=== PATIENT | female | born 1950 | race Caucasian/White ===

== ENCOUNTER → 2022-02-14 | Outpatient (CLI) | payer MEDICARE ==
--- NOTE | 2022-02-14 08:18 | P.GSHP ---
History of Present Illness H&P Date: 02/14/22 Chief Complaint: Abnormal mammogram Angela is a 71 year old female seen in consultation for Teresa Joshi regarding the mammographic abnormality in her right breast. She had a bilateral mammogram performed on . This revealed some grouping of microcalcificati ons within the right breast which had increased in number from her 2020 exam. His were in the middle third 3 to 4 o'clock position. On 9621 a right breast diagnostic mammogram was performed which again revealed calcifications demonstrated some pleomorphism and stereotactic core biopsy was recommended. She does not feel any lumps masses or nodules of concern in either breast. Patient has had 2 biopsies of the left breast which were open. These were benign. These were done approximately 30 years ago. She has not had any nipple discharge, trauma, or infection and the breast recently. Caffeine: occasional nicotine: former smoker; stopped about 49 chocolate: several times a week BCP: 3 years when she was in her 20's Family History: father: prostate cancer brother: skin cancer ? type Hormonal History: menarche: 13 , breast fed: no, age at first : 22 menopause: hysterectomy, ? 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 Eyes: denies blurred vision, denies pain Ears: deny: decreased hearing, tinnitus Ears, nose, mouth and throat: Denies headache, Denies sore throat - Breasts Breasts: bilateral: as per HPI - Cardiovascular Comment: atrial fib - Respiratory Respiratory: Denies cough, Denies 7 - Gastrointestinal Comment: hiatal hernia Gastrointestinal: Denies abdominal pain, Denies diarrhea, Denies nausea, Denies vomiting - Genitourinary (Female) Genitourinary: Denies dysuria, Denies hematuria - Menstruation Menstruation: Reports post hysterectomy - Musculoskeletal Comment: Osteoporosis - Integumentary Integumentary: Denies pruritus, Denies rash - Neurological Neurological: Denies numbness, Denies weakness - Psychiatric Psychiatric: Denies anxiety, Denies depression - Endocrine Endocrine: Denies fatigue, Denies weight change - Hematologic/Lymphatic Comment: eloquis Hematologic/Lymphatic: Reports as per HPI - Allergic/Immunologic Allergic/Immunologic: Reports as per HPI, Reports seasonal allergies Past Medical History Past Medical History: Atrial Fibrillation, Osteoarthritis (OA) History of Any Multi-Drug Resistant Organisms: None Reported Past Surgical History: No Surgical Hx Reported, Hysterectomy Additional Past Surgical History / Comment(s): left breast biopsy x 2 benign Past Anesthesia/Blood Transfusion Reactions: No Reported Reaction Past Psychological History: No Psychological Hx Reported Smoking Status: Former smoker Past Alcohol Use History: Occasional Additional Past Alcohol Use History / Comment(s): quit smoking 2009 ?? Past Drug Use History: None Reported Medications and Allergies Home Medications Medication Instructions Recorded Confirmed Type Apixaban [Eliquis] 5 mg PO BID 01/29/22 02/14/22 History Biotin 5 mg PO DAILY 01/29/22 02/14/22 History Cholecalciferol (Vitamin D3) 125 mcg PO DAILY 01/29/22 02/14/22 History [Vitamin D3 (125 MCG = 5,000 IU)] Allergies Allergy/AdvReac Type Severity Reaction Status Date / Time prednisone AdvReac Rash/Hives Verified 02/14/22 07:54 Surgical - Exam BMI: 25.5 - General no distress - Eyes normal ocular movement - Neck trachea midline - Respiratory normal respiratory effort, clear to auscultation - Cardiovascular Heart Sounds: normal: S1, S2 - Abdomen Abdomen: soft, non tender, no guarding, no rigid, no rebound - Integumentary normal turgor - Neurologic no disoriented, no combative - Musculoskeletal normal gait, normal posture - Psychiatric oriented to time, oriented to person, oriented to place, speech is normal, memory intact Breast Exam: BRA: 36C inspection: bilateral grade 2 ptosis Palpation: Right breast: Multi-positional exam fibrocystic changes no dominant masses or nodules of concern Right axilla: No adenopathy of concern Left breast: Well-healed scars from prior biopsy, no dominant masses or nodules of concern a multi-positional exam Left axilla: No adenopathy of concern Results Mammogram reviewed with Dr. Caban from radiology, right breast pleomorphic calcifications at approximately the 3 to 4 o'clock position in the midportion of the breast Assessment and Plan Assessment: Impression: 1. Atrial fibrillation 2. Hiatal hernia 3. Osteoporosis 4. Amorphic microcalcifications right breast 3 to 4 o'clock position Plan: Stereotactic core biopsy microcalcifications right breast, patient has stopped L it was approximately 48 hours ago Risks and benefits of the procedure discussed with the patient. Risks include but are not limited to bleeding, infection, reaction to the anesthetic. If the tissue obtained was felt to be discordant and further tissue may be necessary to be obtained. The patient understands and wishes to proceed Cc: Dr. Ahmadi, Teresa Joshi N.P.
== END | disposition home or self-care (01) ==
LOC: WWCWWP 06:45
PROVIDERS: ATTEND Surgery
DX: Z53.9 Procedure and treatment not carried out, unspecified reason (principal)

== ENCOUNTER → 2022-02-14 | Day surgery (SDC) | payer MEDICARE ==
[2022-02-14 07:25] VITALS: RESP 16
--- NOTE | 2022-02-14 08:54 | P.PCN ---
Date of Procedure: 02/14/22 Preoperative Diagnosis: Microcalcifications of concern right breast 3 to 4 o'clock position middle portion Postoperative Diagnosis: Same Procedure(s) Performed: Stereotactic core biopsy right breast Anesthesia: local Surgeon: Halle Adams Pathology: other (Breast tissue, radiograph reveals microcalcifications of concern) Condition: stable Disposition: same day Indications for Procedure: Microcalcifications of concern right breast 3 to 4 o'clock position Operative Findings: Radiograph of specimen reveals microcalcifications of concern Description of Procedure: The patient is a 71-year-old white female noted to have microcalcifications of concern in her right breast at the 3 to 4 o'clock position. She was seen and examined preprocedure. The area of concern was noted to be in the 3 to 4 o'clock position of the right breast in the mid breast. A stereotactic core biopsy was recommended. Risks including bleeding, infection, reaction to the anesthetic were discussed with the patient. The possibility of a discordant biopsy which would necessitate further tissue acquisition was also discussed. The patient understood and wished to proceed. Alternatives such as watchful waiting resection the operating room are considered but not recommended. The patient was taken to the stereotactic core biopsy room. She was positioned prone on the lo-rad table. A test engineering technician film was obtained. The area of concern was identified. A medial to lateral approach was utilized. The lesion was targeted. The breast was prepped using Betadine. 20 mL of 1% lidocaine was used to anesthetize the area of concern. A 9-gauge vacuum-assisted core rota ting biopsy needle was driven to the correct coordinates. A prefire film was obtained. The needle was noted to be in the correct location. The needle was fired. A post fire film was obtained. The needle was noted to be in the correct location. 12 core biopsy specimens were obtained. Radiograph of the specimen revealed the microcalcifications of concern to be present. A secure ambika top hat clip was placed. Radiograph revealed this to be in the correct location. The patient tolerated the procedure in stable condition. The specimen was sent to pathology. The patient will follow-up with Dr. Mccrary.
[2022-02-14 08:57] VITALS: BP 154/84; PULSE 79; TEMP 98.2
--- NOTE | 2022-02-15 10:45 | MM ---
Date of Procedure: 02/14/22 Preoperative Diagnosis: Microcalcifications of concern right breast 3 to 4 o'clock position middle portion Postoperative Diagnosis: Same Procedure(s) Performed: Stereotactic core biopsy right breast Anesthesia: local Surgeon: Halle Adams Pathology: other (Breast tissue, radiograph reveals microcalcifications of concern) Condition: stable Disposition: same day Indications for Procedure: Microcalcifications of concern right breast 3 to 4 o'clock position Operative Findings: Radiograph of specimen reveals microcalcifications of concern Description of Procedure: The patient is a 71-year-old white female noted to have microcalcifications of concern in her right breast at the 3 to 4 o'clock position. She was seen and examined preprocedure. The area of concern was noted to be in the 3 to 4 o'clock position of the right breast in the mid breast. A stereotactic core biopsy was recommended. Risks including bleeding, infection, reaction to the anesthetic were discussed with the patient. The possibility of a discordant biopsy which would necessitate further tissue acquisition was also discussed. The patient understood and wished to proceed. Alternatives such as watchful waiting resection the operating room are considered but not recommended. The patient was taken to the stereotactic core biopsy room. She was positioned prone on the lo-rad table. A supervisor cellars film was obtained. The area of concern was identified. A medial to lateral approach was utilized. The lesion was targeted. The breast was prepped using Betadine. 20 mL of 1% lidocaine was used to anesthetize the area of concern. A 9-gauge vacuum-assisted core rotating biopsy needle was driven to the correct coordinates. A prefire film was obtained. The needle was noted to be in the correct location. The needle was fired. A post fire film was obtained. The needle was noted to be in the correct location. 12 core biopsy specimens were obtained. Radiograph of the specimen revealed the microcalcifications of concern to be present. A secure ambika top hat clip was placed. Radiograph revealed this to be in the correct location. The patient tolerated the procedure in stable condition. The specimen was sent to pathology. The patient will follow-up with Dr. Mccrary. LAKHWINDER
== END ==
LOC: RADMAMWWP 06:47
PROVIDERS: ATTEND Surgery
DX: R92.8 Other abnormal and inconclusive findings on diagnostic imaging of breast (principal); C50.911 Malignant neoplasm of unspecified site of right female breast
CPT/HCPCS: 88305; 88342; 88341; 19081; A4648; J2001

== ENCOUNTER → 2022-02-28 | Outpatient (CLI) | payer MEDICARE ==
[2022-02-28 11:28] VITALS: BP 127/77; PULSE 73; RESP 16; TEMP 98.4
--- NOTE | 2022-02-28 11:54 | P.PN ---
Subjective Progress Note Date: 02/28/22 Principal diagnosis: DCIS right breast Angela is a 71 year old white female status post a sterotactic core biopsy on [id number]. 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 This was ER/WI positive. The patient tolerated the procedure without difficulty. Her mammogram was reviewed with Dr. Kan from radiology. The area of microcalcifications extend approximately 2 cm in size. Objective - Vital Signs Vital signs: Vital Signs Temp 98.4 F 02/28/22 11:25 Pulse 73 02/28/22 11:25 Resp 16 02/28/22 11:25 BP 127/77 02/28/22 11:25 Pulse Ox 95 02/28/22 11:25 FiO2 Intake & Output 02/27/22 02/28/22 02/28/22 18:59 06:59 18:59 Weight 72.575 kg - Constitutional General appearance: Present: cooperative - EENT Eyes: Present: EOMI ENT: Present: hearing grossly normal - Neck Neck: Present: normal ROM - Respiratory Respiratory: bilateral: CTA - Cardiovascular Heart sounds: normal: S1, S2 - Integumentary Integumentary Comment(s): Biopsy site right breast clean and dry Evidence of infection or hematoma Integumentary: Present: normal turgor - Musculoskeletal Musculoskeletal: Present: gait normal - Psychiatric Psychiatric: Present: A&O x's 3, appropriate affect, intact judgment & insight Assessment and Plan Assessment: Impression: 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 Ahmadi
== END | disposition home or self-care (01) ==
LOC: WWCWWP 10:39
PROVIDERS: ATTEND Surgery
DX: Z53.9 Procedure and treatment not carried out, unspecified reason (principal)

== ENCOUNTER → 2022-04-16 | Day surgery (SDC) | payer MEDICARE ==
--- NOTE | 2022-04-11 11:38 | P.PN ---
Subjective Progress Note Date: 04/11/22 Principal diagnosis: DCIS left breast Angela is a 71 year old female seen in consultation for Teresa Joshi regarding the mammographic abnormality in her right breast. She had a bilateral mammogram performed on . This revealed some grouping of microcalcifications within the right breast which had increased in number from her 2020 exam. His were in the middle third 3 to 4 o'clock position. On 9621 a right breast diagnostic mammogram was performed which again revealed calcifications demonstrated some pleomorphism and stereotactic core biopsy was recommended. She does not feel any lumps masses or nodules of concern in either breast. Patient has had 2 biopsies of the left breast which were open. These were benign. These were done approximately 30 years ago. She has not had any nipple discharge, trauma, or infection and the breast recently. The patient underwent a right breast stereotactic core biopsy on [id number]. Pathology revealed ductal carcinoma in situ. This was felt to extend over a 2 cm area. The lesion was ER/WI positive. There was grade 2. Her case was presented at tumor board on . Secondary to the size of the lesion after discussion with the patient she wishes to have a sentinel node biopsy added to the procedure. This was secondary to the fact that we could not assure her that the wound might not be some microinvasion. We discussed the fact that she is over 69 years of age and there may not be benefit to this and despite this she wished to sentinel node biopsy to be added to the procedure. Caffeine: occasional nicotine: former smoker; stopped about 49 chocolate: several times a week BCP: 3 years when she was in her 20's Family History: father: prostate cancer brother: skin cancer ? type Hormonal History: menarche: 13 , breast fed: no, age at first : 22 menopause: hysterectomy, ? 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 Eyes: denies blurred vision, denies pain Ears: deny: decreased hearing, tinnitus Ears, nose, mouth and throat: Denies headache, Denies sore throat - Breasts Breasts: bilateral: as per HPI - Cardiovascular Comment: atrial fib - Respiratory Respiratory: Denies cough - Gastrointestinal Comment: hiatal hernia Gastrointestinal: Denies abdominal pain, Denies diarrhea, Denies nausea, Denies vomiting - Genitourinary (Female) Genitourinary: Denies dysuria, Denies hematuria - Menstruation Menstruation: Reports post hysterectomy - Musculoskeletal Comment: Osteoporosis - Integumentary Integumentary: Denies pruritus, Denies rash - Neurological Neurological: Denies numbness, Denies weakness - Psychiatric Psychiatric: Denies anxiety, Denies depression - Endocrine Endocrine: Denies fatigue, Denies weight change - Hematologic/Lymphatic Comment: eloquis Hematologic/Lymphatic: Reports as per HPI - Allergic/Immunologic Allergic/Immunologic: Reports as per HPI, Reports seasonal allergies Past Medical History Past Medical History: Atrial Fibrillation, Osteoarthritis (OA) History of Any Multi-Drug Resistant Organisms: None Reported Past Surgical History: No Surgical Hx Reported, Hysterectomy Additional Past Surgical History / Comment(s): left breast biopsy x 2 benign Past Anesthesia/Blood Transfusion Reactions: No Reported Reaction Past Psychological History: No Psychological Hx Reported Smoking Status: Former smoker Past Alcohol Use History: Occasional Additional Past Alcohol Use History / Comment(s): quit smoking 2009 ?? Past Drug Use History: None Reported Medications and Allergies Home Medications Medication Instructions Recorded Confirmed Type Apixaban [Eliquis] 5 mg PO BID 01/29/22 02/14/22 History Biotin 5 mg PO DAILY 01/29/22 02/14/22 History Cholecalciferol (Vitamin D3) 125 mcg PO DAILY 01/29/22 02/14/22 History [Vitamin D3 (125 MCG = 5,000 IU)] Allergies Allergy/AdvReac Type Severity Reaction Status Date / Time prednisone AdvReac Rash/Hives Verified 02/14/22 07:54 Objective - Constitutional General appearance: Present: cooperative - EENT Eyes: Present: EOMI ENT: Present: hearing grossly normal - Neck Neck: Present: normal ROM - Respiratory Respiratory: bilateral: CTA - Cardiovascular Rhythm: regular Heart sounds: normal: S1, S2 - Gastrointestinal General gastrointestinal: Present: soft - Integumentary Integumentary: Present: normal turgor - Musculoskeletal Musculoskeletal: Present: gait normal - Psychiatric Psychiatric: Present: A&O x's 3, appropriate affect, intact judgment & insight - Additional findings Additional findings: Breast Exam: BRA: 36C inspection: bilateral grade 2 ptosis Palpation: Right breast: Multi-positional exam fibrocystic changes no dominant masses or nodules of concern; biopsy site clean and dry no evidence of infection or hematoma Right axilla: No adenopathy of concern Left breast: Well-healed scars from prior biopsy, no dominant masses or nodules of concern a multi-positional exam Left axilla: No adenopathy of concern Assessment and Plan Assessment: Impression: 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 After long discussion with the patient we have discussed surgical options such as lumpectomy plus or minus radiation as well as mastectomy plus or minus reconstruction. We discussed sentinel lobe biopsy and the fact she is over 69 and that this is ductal carcinoma in situ. We discussed the fact that it is greater than 2 cm and I cannot guarantee that there may be some invasive com ponent. Secondary to this and the fact that she has minimal comorbidity she would like to have a sentinel node biopsy performed. Additionally we discussed during the procedure. Mastopexy incision versus an incision over the area of concern. She would like to have the incision over the area of concern and not have a mastopexy incision. Cc: Dr. Rodriges
[~2022-04-16] MED LIST: ALPRAZolam 0.25 MG TAB ONE; ALPRAZolam 0.25 MG TAB PO ONE; ALPRAZolam 0.5 MG TAB PO PRN; DEXAMETHASONE SOD PHOSPHATE 4 MG/ML 1 ML VIAL IVP ONE; HEPARIN SODIUM,PORCINE/PF 5,000 UNIT/0.5 ML SYRINGE SQ PRN; HYDROcodone/APAP 5-325MG 1 EACH TAB ONE; HYDROcodone/APAP 5-325MG 1 EACH TAB PO ONE; HYDROmorphone (PF) 1 MG/ML ONE; HYDROmorphone 0.5 MG/0.5 ML SYRINGE IVP ONE; HYDROmorphone 0.5 MG/0.5 ML SYRINGE IVP PRN; LACTATED RINGERS 1,000 ML IV ONE; LACTATED RINGERS 1,000 ML IV SCH; LIDOCAINE 2% INJ 20 MG/ML (2 ML VIAL) ONE; MIDAZOLAM 2 MG/2 ML VIAL ONE; ONDANSETRON 4 MG/2 ML VIAL IVP ONE; ONDANSETRON 4 MG/2 ML VIAL ONE; PHENYLEPHRINE-0.9% NACL SYG 1,000 MCG/10 ML SYRINGE ONE; PROPOFOL 10 MG/ML 20 ML VIAL IV ONE; Pre Op ABX Message 1 EACH MISC MISCELLANE ONE; diphenhydrAMINE 50 MG/ML 1 ML VIAL IVP ONE; fentaNYL (PF) 50 MCG/ML 2 ML AMP ONE
--- NOTE | 2022-04-16 14:02 | NM ---
EXAMINATION TYPE: NM sentinel node injection DATE OF EXAM: 04/16/2022 COMPARISON: No direct comparisons. HISTORY: Right breast cancer TECHNIQUE AND FINDINGS: The procedure of sentinel lymph node injection was explained to the patient. The benefits, alternatives, and risks were discussed. An informed consent was then obtained. Overlying skin is cleaned with sterile alcohol. Following this, 521 uCi Tc99m Tilmanocept was inject ed in the upper outer aspect of the right nipple intradermally. The patient tolerated the procedure well without any immediate complication. The patient was kept in the radiology department for short stay after the procedure and then taken to surgery for surgical p rocedure what is presumed intraoperative gamma probe will be used for sentinel lymph node detection. IMPRESSION: Right breast radiotracer injection for sentinel node localization as above.
[2022-04-16 14:08] VITALS: RESP 16
--- NOTE | 2022-04-16 15:10 | P.NAPBC ---
NAPBC Queries - NAPBC Queries Was patient's case review presented at [facility] tumor board? If no, comment.: Yes Was patient's pathology reviewed at [facility]? If no, comment.: Yes Was breast conservation surgery offered? If no, comment.: Yes Was sentinel node biopsy offered? If no, comment.: Yes (>2 cm area of DCIS can't gaurentee no invasion age>70 still wanted SNB ) Was diagnosis confirmed by percutaneous core biopsy? If no, comment.: Yes Is patient mastectomy patient?: No Was a preop referral to reconstructive surgeon offered?: No Clinical Stage: stage O
--- NOTE | 2022-04-16 16:38 | P.OP ---
Date of Procedure: 04/16/22 Preoperative Diagnosis: DCIS right breast Postoperative Diagnosis: same Procedure(s) Performed: Right sentinel node biopsy, right needle localization lumpectomy for DCIS, onco plastic tissue transfer 39 cm Anesthesia: SUMMER Surgeon: Halle Adams Estimated Blood Loss (ml): 10 IV fluids (ml): 400 Pathology: other ([place] lymph node, lumpectomy) Condition: stable Disposition: same day Indications for Procedure: Right breast ductal carcinoma in situ Operative Findings: Fibrofatty breast tissue Description of Procedure: The patient is a 71-year-old white female who was seen first by the radiologist in the radiology department where needle localization of the area of concern was performed. Additionally injection of radiotracer was placed in the periareolar region for sentinel node biopsy. The patient was brought up to the operative suite. Following induction of anesthesia the neoprobe was used to interrogate the axilla. Radioactivity was identified. The breast and axilla were prepped and draped in a sterile fashion. An incision was made in the axilla over the area of greatest radioactivity. Dissection was carried down into the axillary tissues. An Allis clamp was used to grasp the tissue of concern. The Harmonic Scalpel was used to resect the tissue. A radioactive lymph node was identified. The 10 second count was 4079. The background 10 second count was 30. Following this the wound was well irrigated. The deep tissues were closed using the Mobile Vicryl suture. The subcutaneous tissue was closed using 3-0 Vicryl suture. The skin was closed using 4-0 Monocryl. Following this the area of the breast was approached. An incision was made and carried down to the shaft of the needle. The tissue was grasped using an Allis clamp. Surrounding tissue was grasped using the Allis clamp and the tissue was resected around the area of the needle. After the tissue was resected it was painted for orientation. An x-ray of the specimen revealed the area of concern had been removed. The wound was examined for hemostasis. It was irrigated. Titanium clips were placed. The cavity itself was 7 x 3 cm for 21 cm. A superior pillar was formed which was 6 x 2 cm for 12 cm. The inferior pillar was 4 x 1.5 cm for 6 cm.. Total tissue transfer was 39 cm. The superior and inferior patellar were brought together to close the defect using 3-0 Vicryl suture. Following this 3-0 Vicryl suture was used in the subcutaneous tissue. A 4-0 Monocryl subcuticular closure was performed. The patient tolerated procedure in stable condition. All instrument and sponge counts were correct at the end of the case.
--- NOTE | 2022-04-16 16:40 | P.DS ---
Providers Attending physician: Halle Adams Primary care physician: Sae Ahmadi Plan - Discharge Summary Discharge Rx Participant: No New Discharge Prescriptions: No Action Cholecalciferol (Vitamin D3) [Vitamin D3 (125 MCG = 5,000 IU)] 125 mcg PO DAILY Multivitamins, Thera [Multivitamin (formulary)] 1 tab PO DAILY Apixaban [Eliquis] 5 mg PO BID Biotin 5 mg PO DAILY Discharge Medication List Apixaban [Eliquis] 5 mg PO BID 01/29/22 [History] Biotin 5 mg PO DAILY 01/29/22 [History] Cholecalciferol (Vitamin D3) [Vitamin D3 (125 MCG = 5,000 IU)] 125 mcg PO DAILY 01/29/22 [History] Multivitamins, Thera [Multivitamin (formulary)] 1 tab PO DAILY 04/11/22 [History] Follow up Appointment(s)/Referral(s): Halle Adams MD [STAFF PHYSICIAN] - 04/18/22 3:20 pm Activity/Diet/Wound Care/Special Instructions: do not drive for 24 hours after discharge or if taking narcotic pain medication may shower after 48 hours wear bra at all times Discharge Disposition: HOME SELF-CARE
[2022-04-16 17:08] VITALS: TEMP 97.1
[2022-04-16 18:25] VITALS: PULSE 76
[2022-04-16 18:56] VITALS: BP 132/63
== END | disposition home or self-care (01) ==
LOC: OR 11:39
PROVIDERS: ATTEND Surgery
DX: D05.11 Intraductal carcinoma in situ of right breast (principal); I48.91 Unspecified atrial fibrillation; I49.9 Cardiac arrhythmia, unspecified; M19.90 Unspecified osteoarthritis, unspecified site; K21.9 Gastro-esophageal reflux disease without esophagitis; Z87.891 Personal history of nicotine dependence; Z79.899 Other long term (current) drug therapy; Z79.01 Long term (current) use of anticoagulants; Z88.8 Allergy status to other drugs, medicaments and biological substances
CPT/HCPCS: 88342; 88307; 88341; 76098; 19281; 38792; 38525; 38900; 14001; C1819; A9520; J2250; J1200; J2405; J3010; J1170 ×2; J2370; J2704; J1644; J2001

== ENCOUNTER → 2022-05-02 | Outpatient (CLI) | payer MEDICARE ==
[2022-05-02 15:25] VITALS: BP 135/78; PULSE 89; RESP 16; TEMP 98.4
--- NOTE | 2022-05-02 15:36 | P.PN ---
Progress Note - Text Progress Note Date: 05/02/22 Angela is a 72 year old white female status post lumpectomy and SNB on 04-16-22 of the right breast. Her margins were (-) but less than 1 mm ant and ant/sup. Two nodes (-). The tumor about 1cm. Physical exam: Lungs: Clear Heart: Regular rate and rhythm Incisions clean and dry and breast and axilla Plan: Patient to follow with radiation oncology and medical oncology The margins anteriorly and anterior superior are closed for the DCIS who will discuss with radiation oncology as to whether they want reexcision. If there is no reexcision follow-up in 4 months CC: Dr. Ahmadi
== END ==
LOC: WWCWWP 14:48
PROVIDERS: ATTEND Surgery
DX: Z90.11 Acquired absence of right breast and nipple (principal); Z88.8 Allergy status to other drugs, medicaments and biological substances

== ENCOUNTER → 2022-10-09 | Outpatient (CLI) | payer MEDICARE ==
--- NOTE | 2022-10-09 13:45 | P.PN ---
Subjective Progress Note Date: 10/09/22 Angela is a 72 year old white female status post a right breast lumpectomy and SNB on 04-16-22. She completed radiation therapy on . She met with medical oncology regarding hormone therapy and she declined. She will have a bilateral mammogram in November. She has had 2 biopsies of the left breast in the past which were open. These were benign. These were done approximately 30 years ago. 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 The margins were negative. The DCIS measured less than 1 mm from the anterior and 1 mm from the anterior/superior margin. The size was 10 mm by direct measurement. 2 [place] lymph nodes were removed which was negative for metastatic disease. She is complaining of a new lump in her right breast it has been present about 1 month. She states it is painful. Not complaining of any lumps masses or nodules of concern in the left breast. Note radiation oncology 06-25-22 reviewed note medical oncology reviewed 05-14-22 Caffeine: occasional nicotine: former smoker; stopped about 49 chocolate: several times a week BCP: 3 years when she was in her 20's Family History: father: prostate cancer brother: skin cancer ? type Hormonal History: menarche: 13 , breast fed: no, age at first : 22 menopause: hysterectomy, ? 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 Eyes: denies blurred vision, denies pain Ears: deny: decreased hearing, tinnitus Ears, nose, mouth and throat: Denies headache, Denies sore throat - Breasts Breasts: bilateral: as per HPI - Cardiovascular Comment: atrial fib - Respiratory Respiratory: Denies cough - Gastrointestinal Comment: hiatal hernia Gastrointestinal: Denies abdominal pain, Denies diarrhea, Denies nausea, Denies vomiting - Genitourinary (Female) Genitourinary: Denies dysuria, Denies hematuria - Menstruation Menstruation: Reports post hysterectomy - Musculoskeletal Comment: Osteoporosis - Integumentary Integumentary: Denies pruritus, Denies rash - Neurological Neurological: Denies numbness, Denies weakness - Psychiatric Psychiatric: Denies anxiety, Denies depression - Endocrine Endocrine: Denies fatigue, Denies weight change - Hematologic/Lymphatic Comment: eloquis Hematologic/Lymphatic: Reports as per HPI - Allergic/Immunologic Allergic/Immunologic: Reports as per HPI, Reports seasonal allergies Past Medical History Past Medical History: Atrial Fibrillation, Osteoarthritis (OA) History of Any Multi-Drug Resistant Organisms: None Reported Past Surgical History: No Surgical Hx Reported, Hysterectomy Additional Past Surgical History / Comment(s): left breast biopsy x 2 benign Past Anesthesia/Blood Transfusion Reactions: No Reported Reaction Past Psychological History: No Psychological Hx Reported Smoking Status: Former smoker Past Alcohol Use History: Occasional Additional Past Alcohol Use History / Comment(s): quit smoking 2009 ?? Past Drug Use History: None Reported Medications and Allergies Home Medications Medication Instructions Recorded Confirmed Type Apixaban [Eliquis] 5 mg PO BID 01/29/22 02/14/22 History Biotin 5 mg PO DAILY 01/29/22 02/14/22 History Cholecalciferol (Vitamin D3) 125 mcg PO DAILY 01/29/22 02/14/22 History [Vitamin D3 (125 MCG = 5,000 IU)] Allergies Allergy/AdvReac Type Severity Reaction Status Date / Time prednisone AdvReac Rash/Hives Verified 02/14/22 07:54 Objective - Constitutional General appearance: Present: cooperative - EENT Eyes: Present: EOMI ENT: Present: hearing grossly normal - Neck Neck: Present: normal ROM - Respiratory Respiratory: bilateral: CTA - Cardiovascular Rhythm: regular Heart sounds: normal: S1, S2 - Gastrointestinal General gastrointestinal: Present: soft - Integumentary Integumentary: Present: normal turgor - Musculoskeletal Musculoskeletal: Present: gait normal - Psychiatric Psychiatric: Present: A&O x's 3, appropriate affect, intact judgment & insight - Additional findings Additional findings: Breast Exam: BRA: 36C inspection: bilateral grade 2 ptosis Palpation: Right breast: Multi-positional exam fibrocystic changes, almost near the lumpectomy site most likely representing a seroma Right axilla: No adenopathy of concern Left breast: Well-healed scars from prior biopsy, no dominant masses or nodules of concern a multi-positional exam Left axilla: No adenopathy of concern Assessment and Plan Assessment: Impression: 1. Atrial fibrillation 2. Hiatal hernia 3. Osteoporosis 4. Amorphic microcalcifications right breast 3 to 4 o'clock position 5. Right breast lumpectomy sentinel node biopsy for a DCIS, no evidence of recurrence, probable seroma Plan: 1. Aspiration of seroma 2. Bilateral mammogram in with appointment Following informed consent the area of concern in the right breast was prepped using alcohol. An 18-gauge needle on a 20 mL syringe was used to aspirate fluid. 23 mL of straw-colored fluid was removed with resolution of the seroma. The patient tolerated the procedure without difficulty. Cc: Teresa Guan
== END ==
LOC: WWCWWP 12:03
PROVIDERS: ATTEND Surgery
DX: R92.8 Other abnormal and inconclusive findings on diagnostic imaging of breast (principal); I48.91 Unspecified atrial fibrillation; D05.11 Intraductal carcinoma in situ of right breast; K44.9 Diaphragmatic hernia without obstruction or gangrene; M19.90 Unspecified osteoarthritis, unspecified site; M81.0 Age-related osteoporosis without current pathological fracture; Z80.8 Family history of malignant neoplasm of other organs or systems; Z90.11 Acquired absence of right breast and nipple; Z88.8 Allergy status to other drugs, medicaments and biological substances; Z87.891 Personal history of nicotine dependence; Z79.01 Long term (current) use of anticoagulants; Z90.710 Acquired absence of both cervix and uterus

== ENCOUNTER → 2022-12-09 | Outpatient (CLI) | payer MEDICARE ==
--- NOTE | 2022-12-09 14:04 | MM ---
Reason for Exam: Follow-up at short interval from prior study. Last screening mammogram was performed 11 month(s) ago. Patient History: Menarche at age 12. First Full-Term at age 22. Hysterectomy at age 52. Postmenopausal. Breast cancer, right, age 71. [employer]. Previous chest radiation therapy at age 71. 04/16/2022, Lumpectomy on the Right side. 04/16/2022, Malignant MG pre op needle loc RT on the right side. 02/14/2022, Malignant MG stereo VAD BX RT on the right side. Prior Study Comparison: 11/17/2020 Bilateral MG 3D screening mammo w/cad, [facility]. 12/07/2021 Bilateral MG 3D screening mammo w/cad, [facility]. 01/01/2022 Right MG work up mamm w CAD RT, [facility]. Tissue Density: The breast tissue is heterogeneously dense. This may lower the sensitivity of mammography. Findings: Analyzed By CAD. Surgical clips in the right breast. There is a well-circumscribed mass in the right breast approximately 4.1 cm from the nipple measuring 56 x 45 mm in the area of the surgical bed. Finding likely represents seroma/hematoma. Ultrasound of the area will be performed for completeness. The left breast is without suspicious mass, distortion or calcifications. Overall Assessment: Incomplete: need additional imaging evaluation, BI-RAD 0 Management: Diagnostic Breast Ultrasound of the right breast. Results were given to the patient verbally at the time of exam. Patient should continue monthly self-breast exams. A clinical breast exam by your physician is recommended on an annual basis. This exam should not preclude additional follow-up of suspicious palpable abnormalities. Note on Meeta scores and lifetime risk: 1. A Meeta score greater than 3% is considered moderate risk. If this is the case, consider specialist referral to assess eligibility for a risk reducing agent. 2. If overall lifetime risk for the development of breast cancer is 20% or higher, the patient may qualify for future screening with alternating mammogram and breast MRI. Electronically signed and approved by: Vahid Daigle DO
== END | disposition home or self-care (01) ==
LOC: RADMAMWWP 13:33
PROVIDERS: ATTEND Surgery
DX: R92.8 Other abnormal and inconclusive findings on diagnostic imaging of breast (principal); Z85.3 Personal history of malignant neoplasm of breast; Z78.0 Asymptomatic menopausal state
CPT/HCPCS: 77066; G0279; 77062

== ENCOUNTER → 2023-08-08 | Outpatient (CLI) | payer MEDICARE ==
--- NOTE | 2023-08-08 09:43 | P.PN ---
Subjective Progress Note Date: 08/08/23 Principal diagnosis: right breast DCIS 202110/09/22 Angela is a 73 year old white female status post a right breast lumpectomy and SNB on 04-16-22. She completed radiation therapy on . She met with medical oncology regarding hormone therapy and she declined. She will have a bilateral mammogram in November 2022, BIRAD 0 and ultrasound recommended of the right breast. This had been done on 12-09-22 and was BIRAD 2. She has had 2 biopsies of the left breast in the past which were open. These were benign. These were done approximately 30 years ago. 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 The margins were negative. The DCIS measured less than 1 mm from the anterior and 1 mm from the anterior/superior margin. The size was 10 mm by direct measurement. 2 [place] lymph nodes were removed which was negative for metastatic disease. She is complaining of fullness in her right breast it has been present since last November at the site of the prior lumpectomy. She states it is painful. Not complaining of any lumps masses or nodules of concern in the left breast. Caffeine: occasional nicotine: former smoker; stopped about 49 chocolate: several times a week BCP: 3 years when she was in her 20's Family History: father: prostate cancer brother: skin cancer ? type Hormonal History: menarche: 13 , breast fed: no, age at first : 22 menopause: hysterectomy, ? 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 Eyes: denies blurred vision, denies pain Ears: deny: decreased hearing, tinnitus Ears, nose, mouth and throat: Denies headache, Denies sore throat - Breasts Breasts: bilateral: as per HPI - Cardiovascular Comment: atrial fib - Respiratory Respiratory: Denies cough - Gastrointestinal Comment: hiatal hernia Gastrointestinal: Denies abdominal pain, Denies diarrhea, Denies nausea, Denies vomiting - Genitourinary (Female) Genitourinary: Denies dysuria, Denies hematuria - Menstruation Menstruation: Reports post hysterectomy - Musculoskeletal Comment: Osteoporosis - Integumentary Integumentary: Denies pruritus, Denies rash - Neurological Neurological: Denies numbness, Denies weakness - Psychiatric Psychiatric: Denies anxiety, Denies depression - Endocrine Endocrine: Denies fatigue, Denies weight change - Hematologic/Lymphatic Comment: eloquis Hematologic/Lymphatic: Reports as per HPI - Allergic/Immunologic Allergic/Immunologic: Reports as per HPI, Reports seasonal allergies Past Medical History Past Medical History: Atrial Fibrillation, Osteoarthritis (OA) History of Any Multi-Drug Resistant Organisms: None Reported Past Surgical History: No Surgical Hx Reported, Hysterectomy Additional Past Surgical History / Comment(s): left breast biopsy x 2 benign Past Anesthesia/Blood Transfusion Reactions: No Reported Reaction Past Psychological History: No Psychological Hx Reported Smoking Status: Former smoker Past Alcohol Use History: Occasional Additional Past Alcohol Use History / Comment(s): quit smoking 2009 ?? Past Drug Use History: None Reported Medications and Allergies Home Medications Medication Instructions Recorded Confirmed Type Apixaban [Eliquis] 5 mg PO BID 01/29/22 02/14/22 History Biotin 5 mg PO DAILY 01/29/22 02/14/22 History Cholecalciferol (Vitamin D3) 125 mcg PO DAILY 01/29/22 02/14/22 History [Vitamin D3 (125 MCG = 5,000 IU)] Allergies Allergy/AdvReac Type Severity Reaction Status Date / Time prednisone AdvReac Rash/Hives Verified 02/14/22 07:54 Objective - Constitutional General appearance: Present: cooperative - EENT Eyes: Present: EOMI ENT: Present: hearing grossly normal - Neck Neck: Present: normal ROM - Respiratory Respiratory: bilateral: CTA - Cardiovascular Rhythm: regular Heart sounds: normal: S1, S2 - Gastrointestinal General gastrointestinal: Present: soft - Integumentary Integumentary: Present: normal turgor - Musculoskeletal Musculoskeletal: Present: gait normal - Psychiatric Psychiatric: Present: A&O x's 3, appropriate affect, intact judgment & insight - Additional findings Additional findings: Breast Exam: BRA: 36C inspection: bilateral grade 2 ptosis Palpation: Right breast: Multi-positional exam fibrocystic changes, fulness near the lumpectomy site most likely representing a seroma about 4 5 cm, post surgical and radiation changes Right axilla: No adenopathy of concern Left breast: Well-healed scars from prior biopsy, no dominant masses or nodules of concern a multi-positional exam Left axilla: No adenopathy of concern Assessment and Plan Assessment: Impression: 1. Atrial fibrillation 2. Hiatal hernia 3. Osteoporosis 4. Amorphic microcalcifications right breast 3 to 4 o'clock position 5. Right breast lumpectomy sentinel node biopsy for a DCIS, no evidence of recurrence, probable seroma Plan: 1. Aspiration of seroma 2. Bilateral mammogram in with appointment Cc: Dr. Ahmadi, Teresa Joshi
[2023-08-08 10:09] VITALS: BP 124/80; PULSE 79; RESP 17; TEMP 98.1
== END ==
LOC: WWCWWP 08:41
PROVIDERS: ATTEND Surgery
DX: R92.0 Mammographic microcalcification found on diagnostic imaging of breast (principal); D05.11 Intraductal carcinoma in situ of right breast; I48.91 Unspecified atrial fibrillation; K44.9 Diaphragmatic hernia without obstruction or gangrene; M81.0 Age-related osteoporosis without current pathological fracture; Z48.817 Encounter for surgical aftercare following surgery on the skin and subcutaneous tissue; Z88.8 Allergy status to other drugs, medicaments and biological substances; Z87.891 Personal history of nicotine dependence; Z92.3 Personal history of irradiation; Z79.01 Long term (current) use of anticoagulants